=== PATIENT | male | born 1990 | race Caucasian/White ===

== ENCOUNTER 2016-08-05 | Emergency (ER) | payer MEDICAID | END 2016-08-05 15:42 | disposition home or self-care (01) ==

== ENCOUNTER 2017-06-19 16:15 | Emergency (ER) | payer MEDICAID ==
[2017-06-19 16:30] VITALS: BP 126/83
--- NOTE | 2017-06-19 17:27 | ED Physician Documentation ---
PD HPI URI - Stated complaint Stated Complaint: SORE THROAT - Chief complaint Chief Complaint: Heent - History obtained from History obtained from: Patient - History of Present Illness Timing - onset: Last night Timing duration: Days (1) Timing details: Abrupt onset, Still present Associated symptoms: Fever, Sore throat, Swollen nodes. No: Nasal congestion, Dry cough Contributing factors: No: Sick contact, Travel, Immunocompromised, Unimmunized Similar symptoms before: Diagnosis (strep tonsillitis) Recently seen: Not recently seen Review of Systems Constitutional: reports: Fever, Chills Nose: denies: Rhinorrhea / runny nose, Congestion Throat: reports: Sore throat Respiratory: denies: Cough GI: reports: Nausea. denies: Abdominal Pain, Vomiting, Diarrhea : denies: Dysuria, Frequency Skin: denies: Rash PD PAST MEDICAL HISTORY - Past Medical History Past Medical History: No Psych: Depression, Anxiety - Past Surgical History Past Surgical History: No - Present Medications Home Medications: Ambulatory Orders Medication Instructions Recorded Confirmed Amoxicillin 500 mg PO TID #20 capsule 06/19/17 Dexamethasone [Decadron] 4 mg PO DAILY #5 tablet 06/19/17 FLUoxetine [PROzac] 20 mg ORAL DAILY 06/19/17 06/19/17 HYDROcod/ACETAM 5/325 [[place] 5/325] 1 tab PO Q6H PRN #10 tablet 06/19/17 - Allergies Allergies/Adverse Reactions: Allergies Allergy/AdvReac Type Severity Reaction Status Date / Time No Known Drug Allergies Allergy Verified 06/19/17 17:56 - Social History Does the pt smoke?: No Smoking Status: Former smoker Does the pt drink ETOH?: Yes Does the pt have substance abuse?: No - Immunizations Immunizations are current?: Yes - POLST Patient has POLST: No PD ED PE NORMAL - Vitals Vital signs reviewed: Yes - General General: Alert and oriented X 3, Well developed/nourished, Other (appears uncomfortable with swallowing. Slgihtly muffled voice. ) - HEENT HEENT: No: Pharynx benign (enlarged tonsils both sides with exudate. No peritonsillar swelling nor uvular deviation. Tonsils essentially touching in the middle. ) - Neck Neck: Supple, no meningeal sign, Other (anterior nodes felt and tender.) - Cardiac Cardiac: RRR (tachycardic), No murmur - Respiratory Respiratory: Clear bilaterally - Abdomen Abdomen: Normal bowel sounds, Soft, Non tender, No organomegaly - Derm Derm: Normal color, Warm and dry - Extremities Extremities: No deformity, No tenderness to palpate, Normal ROM s pain, No edema , No calf tenderness / cord - Neuro Neuro: Alert and oriented X 3, No motor deficit. No: Normal speech (slightly muffled, but able to swallow saliva and fluids. ) Results - Vitals Vitals: Oxygen O2 Source Room air - Labs Labs: Microbiology 06/19/17 16:33 Group A Strep Throat Culture - Preliminary Throat CULTURE IN PROGRESS. RESULTS TO FOLLOW. Laboratory Tests 06/19/17 16:33 Group A Strep Rapid Negative PD MEDICAL DECISION MAKING - ED course Complexity details: reviewed results, considered differential (looks like exudative tonsillitis, and has 4/4 Centor, so will treat empirically pending cultures. Rapid test negative but has high false negative rate. ), d/w patient Departure - Departure Disposition: 01 Home, Self Care Clinical Impression: Acute tonsillitis Qualifiers: Pharyngitis/tonsillitis etiology: streptococcus Streptococcal tonsillitis recurrence: recurrent Qualified Code(s): J03.01 - Acute recurrent streptococcal tonsillitis Condition: Stable Record reviewed to determine appropriate education?: Yes Instructions: ED Strep Pharyngitis Poss Follow-Up: Mayra Cruz PA-C [Primary Care Provider] - Prescriptions: Amoxicillin 500 mg PO TID #20 capsule Dexamethasone [Decadron] 4 mg PO DAILY #5 tablet HYDROcod/ACETAM 5/325 [[place] 5/325] 1 tab PO Q6H PRN #10 tablet PRN Reason: Pain Comments: This looks like strep tonsillitis. We will treated as such. Tylenol or ibuprofen if needed for mild pains. Drink lots of fluid. You could use some antiseptic rinse such as Listerine a few times a day. Amoxicillin 3 times a day for a week as an antibiotic. Decadron daily for 5 days for inflammation. Add hydrocodone if needed for worse pain. This likely will only need to be for the first couple of days until things are well improved. Recheck if not improved a lot over the next 2-3 days but it may take even 5 or 6 days to be completely better. Return if worsening. Discharge Date/Time: 06/19/17 18:32
[2017-06-19] MEDS ORDERED: AMOXICILLIN 250 MG CAPSULE PO STA (17:39)
[2017-06-19] MEDS ORDERED: DEXAMETHASONE 10 MG/ML VIAL PO STA (17:39)
[2017-06-19] MEDS ORDERED: HYDROcod/ACETAM 5/325 MG TABLET PO STA (17:39)
[2017-06-19 18:01] LABS: RAPID STREP SCREEN REAGENT QC YELLOW (YELLOW)
[2017-06-19] MEDS ORDERED: AMOXICILLIN 250 MG CAPSULE PO ONE (18:15)
[2017-06-19] MEDS ORDERED: HYDROcod/ACETAM 5/325 MG TABLET ONE (18:15)
[2017-06-19] MEDS ORDERED: DEXAMETHASONE 10 MG/ML VIAL ONE (18:15)
== END 2017-06-19 18:32 | disposition home or self-care (01) ==
LOC: ED 16:15
DX: J03.01 Acute recurrent streptococcal tonsillitis (principal); Z87.891 Personal history of nicotine dependence
CPT/HCPCS: 87070; 87430; 99283; A9270

== ENCOUNTER 2018-01-01 13:30 | Outpatient (CLI) | payer MEDICAID ==
[2018-01-01 18:05] LABS: BASOPHILS # (AUTO) 0.1 10^3/uL (0.0-0.1); BASOPHILS % (AUTO) 0.7 %; EOSINOPHILS # (AUTO) 0.6 10^3/uL (0.0-0.7); EOSINOPHILS % (AUTO) 5.3 %; HGB - HEMOGLOBIN 14.1 g/dL (14.0-18.0); LYMPHOCYTES # (AUTO) 2.5 10^3/uL (1.5-3.5); LYMPHOCYTES % (AUTO) 23.4 %; MEAN CORPUSCULAR HEMOGLOBIN 29.6 pg (27.0-31.0); MEAN CORPUSCULAR HGB CONC 34.4 g/dL (32.0-36.0); MEAN CORPUSCULAR VOLUME 86.1 fL (80.0-94.0); MEAN PLATELET VOLUME 7.8 fL (7.4-11.4); MONOCYTES # (AUTO) 0.7 10^3/uL (0.0-1.0); MONOCYTES % (AUTO) 6.9 %; NEUTROPHILS # (AUTO) 6.9 10^3/uL (1.5-6.6); NEUTROPHILS % (AUTO) 63.7 %; PLT - PLATELET COUNT 283 10^3/uL (130-450); RED BLOOD COUNT 4.75 10^6/uL (4.70-6.10); RED CELL DISTRIBUTION WIDTH 12.7 % (12.0-15.0); WHITE BLOOD COUNT 10.9 x10^3/uL (4.8-10.8)
[2018-01-01 19:13] LABS: ALBUMIN 4.1 g/dL (3.2-5.5); ALBUMIN/GLOBULIN RATIO 1.5 (1.0-2.2); ALKALINE PHOSPHATASE 87 IU/L (42-121); ALT ALANINE AMINOTRANSFERASE 98 IU/L (10-60); AST ASPARTATE AMINOTRANSFERASE 57 IU/L (10-42); BILIRUBIN,TOTAL 0.9 mg/dL (0.2-1.0); BUN - BLOOD UREA NITROGEN 15 mg/dL (6-20); CALCIUM 9.4 mg/dL (8.5-10.3); CARBON DIOXIDE - CO2 30 mmol/L (21-32); CHLORIDE 100 mmol/L (101-111); CHOL/HDL RATIO 4.2 (<5.0); CHOLESTEROL 156 mg/dL; CREATININE 0.9 mg/dL (0.6-1.2); GFR - MDRD 102 (>89); GLUCOSE 101 mg/dL (70-100); HDL CHOLESTEROL 37 mg/dL; LDL CHOLESTEROL,CALCULATED 88 mg/dL; LDL/HDL RATIO 2.4 (<3.6); SODIUM 135 mmol/L (135-145); TOTAL PROTEIN 6.9 g/dL (6.7-8.2); VLDL CHOLESTEROL 31 mg/dL
== END 2018-01-01 13:31 | disposition home or self-care (01) ==
LOC: LAB.F 13:30
PROVIDERS: ATTEND Physician Assistant Medical
DX: R53.83 Other fatigue (principal); M25.50 Pain in unspecified joint; Z00.00 Encounter for general adult medical examination without abnormal findings; E29.1 Testicular hypofunction
CPT/HCPCS: 36415; 80053; 80061; 81599; 83721; 84402; 84403; 84443; 85025

== ENCOUNTER 2018-01-10 13:31 | Outpatient (CLI) | payer MEDICAID ==
[2018-01-10 17:51] LABS: BASOPHILS # (AUTO) 0.1 10^3/uL (0.0-0.1); BASOPHILS % (AUTO) 0.9 %; EOSINOPHILS # (AUTO) 0.7 10^3/uL (0.0-0.7); EOSINOPHILS % (AUTO) 6.6 %; HGB - HEMOGLOBIN 14.5 g/dL (14.0-18.0); LYMPHOCYTES # (AUTO) 2.8 10^3/uL (1.5-3.5); LYMPHOCYTES % (AUTO) 25.3 %; MEAN CORPUSCULAR HEMOGLOBIN 29.9 pg (27.0-31.0); MEAN CORPUSCULAR HGB CONC 34.2 g/dL (32.0-36.0); MEAN CORPUSCULAR VOLUME 87.6 fL (80.0-94.0); MEAN PLATELET VOLUME 7.8 fL (7.4-11.4); MONOCYTES # (AUTO) 1.1 10^3/uL (0.0-1.0); MONOCYTES % (AUTO) 9.7 %; NEUTROPHILS # (AUTO) 6.3 10^3/uL (1.5-6.6); NEUTROPHILS % (AUTO) 57.5 %; PLT - PLATELET COUNT 271 10^3/uL (130-450); RED BLOOD COUNT 4.83 10^6/uL (4.70-6.10); RED CELL DISTRIBUTION WIDTH 12.8 % (12.0-15.0)
[2018-01-10 18:08] LABS: ALBUMIN/GLOBULIN RATIO 1.4 (1.0-2.2); BILIRUBIN,TOTAL 1.8 mg/dL (0.2-1.0); CALCIUM 9.2 mg/dL (8.5-10.3); CREATININE 0.9 mg/dL (0.6-1.2); TOTAL PROTEIN 6.9 g/dL (6.7-8.2)
== END 2018-01-10 13:32 | disposition home or self-care (01) ==
LOC: LAB.F 13:31
PROVIDERS: ATTEND Physician Assistant Medical
DX: R89.9 Unspecified abnormal finding in specimens from other organs, systems and tissues (principal); R79.89 Other specified abnormal findings of blood chemistry
CPT/HCPCS: 36415; 80053; 85025

== ENCOUNTER 2018-01-16 13:32 | Outpatient (CLI) | payer MEDICAID ==
[2018-01-20 20:03] LABS: SOURCE WHOLE BLOOD
== END 2018-01-16 13:33 | disposition home or self-care (01) ==
LOC: LAB.F 13:32
PROVIDERS: ATTEND Physician Assistant Medical
DX: J02.9 Acute pharyngitis, unspecified (principal); R89.9 Unspecified abnormal finding in specimens from other organs, systems and tissues; R79.89 Other specified abnormal findings of blood chemistry; R53.83 Other fatigue
CPT/HCPCS: 36415; 87798

== ENCOUNTER 2018-01-30 13:24 | Outpatient (CLI) | payer MEDICAID | END 2018-01-30 13:25 | disposition home or self-care (01) | LOC: SC 13:24 | PROVIDERS: ATTEND Internal Medicine Pulmonary Disease | DX: G47.30 Sleep apnea, unspecified (principal); G47.10 Hypersomnia, unspecified; R06.83 Snoring; G47.8 Other sleep disorders; G47.00 Insomnia, unspecified | CPT/HCPCS: 99203; 99212 ==

== ENCOUNTER 2018-03-19 09:36 | Outpatient (CLI) | payer MEDICAID | END 2018-03-19 09:37 | disposition home or self-care (01) | LOC: SC 09:36 | PROVIDERS: ATTEND Nurse Practitioner Family | DX: R06.83 Snoring (principal); G47.00 Insomnia, unspecified; R53.83 Other fatigue | CPT/HCPCS: 99212; 99214 ==

== ENCOUNTER 2018-05-21 08:00 | Outpatient (CLI) | payer MEDICAID | END 2018-05-21 23:59 | LOC: LAB.R 08:00 | PROVIDERS: ATTEND Physician Assistant Medical | DX: J20.9 Acute bronchitis, unspecified (principal); Z72.53 High risk bisexual behavior | CPT/HCPCS: 87070 ==

== ENCOUNTER 2019-05-31 13:56 | Outpatient (CLI) | payer MEDICAID | END 2019-05-31 13:57 | disposition home or self-care (01) | LOC: LAB 13:56 | PROVIDERS: ATTEND Physician Assistant Medical | DX: F11.11 Opioid abuse, in remission (principal) | CPT/HCPCS: 36415; 81599; 86480 ==

== ENCOUNTER 2019-07-16 19:53 | Emergency (ER) | payer MEDICAID ==
[2019-07-16] MEDS ORDERED: IBUPROFEN 800 MG TABLET PO STA (21:40)
[2019-07-16] MEDS ORDERED: CHERRY SYRUP 10 ML UDC PO ONE (21:40)
[2019-07-16] MEDS ORDERED: AMOX/CLAV 875 MG/125 MG TABLET PO STA (21:40)
[2019-07-16] MEDS ORDERED: DEXAMETHASONE 10 MG/ML VIAL PO STA (21:40)
--- NOTE | 2019-07-16 21:44 | ED Physician Documentation ---
History of Present Illness - Stated complaint Stated Complaint: THROAT PAIN - Chief complaint Chief Complaint: Heent - History obtained from History obtained from: Patient, Family - History of Present Illness Timing: How many weeks ago (1) Pain level max: 7 Pain level now: 6 - Additonal information Additional information: L throat pain. no fever. Worse with swallowing and better with rest. Does have some rhinorrhea and congestion. No cough. No vomiting. Has not taken anything for this at home. Review of Systems Constitutional: denies: Fever, Chills Respiratory: denies: Cough GI: denies: Nausea, Vomiting, Diarrhea Skin: denies: Rash PD PAST MEDICAL HISTORY - Past Medical History Past Medical History: Yes Cardiovascular: None Respiratory: None Neuro: None Endocrine/Autoimmune: None GI: None : None HEENT: None Psych: Depression, Anxiety, Other Musculoskeletal: None Derm: None - Past Surgical History Past Surgical History: No - Present Medications Home Medications: Ambulatory Orders Medication Instructions Recorded Confirmed Amoxicillin 500 mg PO TID #20 capsule 06/19/17 FLUoxetine [PROzac] 20 mg ORAL DAILY 06/19/17 06/19/17 HYDROcod/ACETAM 5/325 [[place] 5/325] 1 tab PO Q6H PRN #10 tablet 06/19/17 dexAMETHasone [Decadron] 4 mg PO DAILY #5 tablet 06/19/17 Amox/Clav 875/125 [Augmentin] 1 each PO Q12H #20 tablet 07/16/19 Ibuprofen [Motrin] 800 mg PO Q8H PRN #30 tablet 07/16/19 - Allergies Allergies/Adverse Reactions: Allergies Allergy/AdvReac Type Severity Reaction Status Date / Time No Known Drug Allergies Allergy Verified 07/16/19 20:03 - Social History Does the pt smoke?: No Smoking Status: Former smoker Does the pt drink ETOH?: Yes Does the pt have substance abuse?: Yes Substance Use and Type: Heroin, Prescription Pills - Immunizations Immunizations are current?: Yes - POLST Patient has POLST: No PD ED PE NORMAL - Vitals Vital signs reviewed: Yes - General General: Alert and oriented X 3, No acute distress - HEENT HEENT: Ears normal, Moist mucous membranes, Other (Left tonsil has a small ulceration at the base. There is also exudate on the tonsil. Uvula is midline. Normal phonation. No trismus.) - Neck Neck: Supple, no meningeal sign, Other (Shotty anterior lymphadenopathy) - Cardiac Cardiac: RRR - Respiratory Respiratory: No respiratory distress, Clear bilaterally - Derm Derm: Warm and dry, No rash - Neuro Neuro: Alert and oriented X 3 Results - Vitals Vitals: Vital Signs - 24 hr 07/16/19 07/16/19 21:12 22:07 Temperature 36.5 C Heart Rate 77 77 Respiratory 16 18 Rate Blood Pressure 122/105 H 138/84 H O2 Saturation 98 98 Oxygen O2 Source Room air - Labs Labs: Microbiology 07/16/19 20:58 Group A Strep Throat Culture - Preliminary Throat CULTURE IN PROGRESS. RESULTS TO FOLLOW. Laboratory Tests 07/16/19 20:58 Group A Strep Rapid Negative PD MEDICAL DECISION MAKING - ED course Complexity details: considered differential, d/w patient ED course: Patient is well-appearing, nontoxic. Afebrile. Will treat as tonsillitis. Patient counseled regarding signs and symptoms for which I believe and urgent re-evaluation would be necessary. Patient with good understanding of and agreement to plan and is comfortable going home at this time This document was made in part using voice recognition software. While efforts are made to proofread this document, sound alike and grammatical errors may occur. No evidence of peritonsillar abscess, retropharyngeal abscess. Departure - Departure Disposition: 01 Home, Self Care Clinical Impression: Acute tonsillitis Qualifiers: Pharyngitis/tonsillitis etiology: unspecified etiology Qualified Code(s): J03.90 - Acute tonsillitis, unspecified Condition: Good Instructions: ED Tonsillitis Follow-Up: Mayra Cruz PA-C [Primary Care Provider] - Within 1 week Prescriptions: Amox/Clav 875/125 [Augmentin] 1 each PO Q12H #20 tablet Ibuprofen [Motrin] 800 mg PO Q8H PRN #30 tablet PRN Reason: PAIN &/OR FEVER Comments: You can try Benadryl at home as well, take the liquid Benadryl and hold it in the area of the ulcer. This will act as a topical anesthetic. Take all antibiotics until gone. Return if you worsen. Discharge Date/Time: 07/16/19 22:10
[2019-07-16 22:08] VITALS: BP 138/84
== END 2019-07-16 22:10 | disposition home or self-care (01) ==
LOC: ED 19:53
DX: J03.90 Acute tonsillitis, unspecified (principal); J35.8 Other chronic diseases of tonsils and adenoids; Z87.891 Personal history of nicotine dependence
CPT/HCPCS: 87070; 87430; 99283; 99284; A9270

== ENCOUNTER 2019-08-02 17:45 | Emergency (ER) | payer MEDICAID ==
[2019-08-02] MEDS ORDERED: MAG HYDROX/AL HYDROX/SIMETH 30 ML UDC PO STA (18:34)
[2019-08-02] MEDS ORDERED: FAMOTIDINE 20 MG TABLET PO STA (18:34)
[2019-08-02] MEDS ORDERED: SUCRALFATE 1 GM/10 ML UDC PO STA (18:34)
--- NOTE | 2019-08-02 18:40 | ED Physician Documentation ---
PD HPI ABD PAIN - Stated complaint Stated Complaint: ABD PAIN X 4 DAYS - Chief complaint Chief Complaint: Abd Pain - History obtained from History obtained from: Patient - History of Present Illness Timing - onset: How many days ago (4-5) Timing - duration: Days (4-5) Timing - details: Gradual onset Pain level max: 7 Pain level now: 4 Quality: Aching, Pain Location: Epigastric Radiation: Chest Improved by: Eating Worsened by: Other (lying down) Associated symptoms: Nausea. No: Fever, Vomiting, Hematemesis, Diarrhea, Constipation, Melena, Hematochezia, Dysuria Similar symptoms before: Has not had sx before Recently seen: Not recently seen Review of Systems Constitutional: denies: Fever, Chills Respiratory: denies: Cough GI: denies: Vomiting, Constipation, Diarrhea, Hematemesis, Bloody / black stool Skin: denies: Rash Musculoskeletal: denies: Neck pain, Back pain Neurologic: denies: Headache PD PAST MEDICAL HISTORY - Past Medical History Past Medical History: No Cardiovascular: None Respiratory: None Neuro: None Endocrine/Autoimmune: None GI: None : None HEENT: None Psych: Depression, Anxiety, Other Musculoskeletal: None Derm: None - Past Surgical History Past Surgical History: No - Present Medications Home Medications: Ambulatory Orders Medication Instructions Recorded Confirmed Amoxicillin 500 mg PO TID #20 capsule 06/19/17 FLUoxetine [PROzac] 20 mg ORAL DAILY 06/19/17 06/19/17 HYDROcod/ACETAM 5/325 [[place] 5/325] 1 tab PO Q6H PRN #10 tablet 06/19/17 dexAMETHasone [Decadron] 4 mg PO DAILY #5 tablet 06/19/17 Amox/Clav 875/125 [Augmentin] 1 each PO Q12H #20 tablet 07/16/19 Ibuprofen [Motrin] 800 mg PO Q8H PRN #30 tablet 07/16/19 Famotidine [Pepcid] 20 mg PO BID #60 tablet 08/02/19 Sucralfate [Carafate] 1 gm PO ACHS #60 tablet 08/02/19 - Allergies Allergies/Adverse Reactions: Allergies Allergy/AdvReac Type Severity Reaction Status Date / Time No Known Drug Allergies Allergy Verified 08/02/19 17:55 - Social History Does the pt smoke?: No Smoking Status: Never smoker Does the pt drink ETOH?: Yes Does the pt have substance abuse?: Yes - Immunizations Immunizations are current?: Yes - POLST Patient has POLST: No PD ED PE NORMAL - Vitals Vital signs reviewed: Yes - General General: Alert and oriented X 3, No acute distress - HEENT HEENT: Moist mucous membranes - Neck Neck: Supple, no meningeal sign - Cardiac Cardiac: RRR, Strong equal pulses - Respiratory Respiratory: No respiratory distress, Clear bilaterally - Abdomen Abdomen: Soft, Non tender, Non distended - Back Back: No CVA TTP, No spinal TTP - Derm Derm: Warm and dry - Neuro Neuro: Alert and oriented X 3 Results - Vitals Vitals: Vital Signs - 24 hr 08/02/19 08/02/19 08/02/19 17:51 17:54 20:26 Temperature 36.4 C L Heart Rate 76 76 72 Respiratory 16 16 18 Rate Blood Pressure 123/88 H 123/88 H 131/84 H O2 Saturation 98 98 97 Oxygen O2 Source Room air - Labs Labs: Laboratory Tests 08/02/19 08/02/19 08/02/19 19:14 19:14 20:30 WBC 14.3 H RBC 4.70 Hgb 14.7 Hct 41.5 L MCV 88.3 MCH 31.3 H MCHC 35.4 RDW 13.0 Plt Count 316 MPV 9.1 Neut # (Auto) 9.8 H Lymph # (Auto) 3.4 [place] # (Auto) 0.8 Eos # (Auto) 0.2 Baso # (Auto) 0.1 Absolute Nucleated RBC 0.00 Nucleated RBC % 0.0 Sodium 138 Potassium 3.8 Chloride 101 Carbon Dioxide 29 Anion Gap 8.0 BUN 14 Creatinine 1.0 Estimated GFR (MDRD) 90 Glucose 94 Calcium 9.3 Total Bilirubin 0.9 AST 17 ALT 20 Alkaline Phosphatase 69 Total Protein 7.1 Albumin 4.5 Globulin 2.6 Albumin/Globulin Ratio 1.7 Lipase 34 Urine Color YELLOW Urine Clarity CLEAR Urine pH 7.0 Ur Specific [place] <=1.005 Urine Protein NEGATIVE Urine Glucose (UA) NEGATIVE Urine Ketones NEGATIVE Urine Occult Blood NEGATIVE Urine Nitrite NEGATIVE Urine Bilirubin NEGATIVE Urine Urobilinogen 0.2 (NORMAL) Ur Leukocyte Esterase NEGATIVE Ur Microscopic Review NOT INDICATED Urine Culture Comments NOT INDICATED - Rads (name of study) RUQ US Radiology: Prelim report reviewed, EMP read contemporaneously, See rad report ( The gallbladder appears within normal limits. No bile duct dilatation is seen. 2. Mild fatty liver. ) PD MEDICAL DECISION MAKING - ED course Complexity details: reviewed results, re-evaluated patient, considered differential, d/w patient ED course: Patient with abdominal pain of unclear etiology. No significant lab abnormalities other than a mild leukocytosis. Not much change with the GI cocktail. Abdomen is soft, nontender nondistended on serial exam. No evidence of cholecystitis. Possible gastritis? He does drink alcohol. Will place on Pepcid and Carafate for home. Also counseled regarding dietary changes for his fatty liver. Patient counseled regarding signs and symptoms for which I believe and urgent re-evaluation would be necessary. Patient with good understanding of and agreement to plan and is comfortable going home at this time This document was made in part using voice recognition software. While efforts are made to proofread this document, sound alike and grammatical errors may occur. Departure - Departure Disposition: 01 Home, Self Care Clinical Impression: Fatty liver Abdominal pain Qualifiers: Abdominal location: unspecified location Qualified Code(s): R10.9 - Unspecified abdominal pain Condition: Good Instructions: ED Abdominal Pain Unkn Cause Follow-Up: Mayra Cruz PA-C [Primary Care Provider] - Within 1 week Prescriptions: Famotidine [Pepcid] 20 mg PO BID #60 tablet Sucralfate [Carafate] 1 gm PO ACHS #60 tablet Comments: The cause of your symptoms is unclear today. Your laboratory testing and ultrasound do not show any acute abnormalities. Return if you worsen. You do have a mild fatty liver, this is likely diet and weight related. Eating more of a plant-based diet will help to reverse this process.
[2019-08-02 19:17] LABS: BASOPHILS # (AUTO) 0.1 10^3/uL (0.0-0.1); BASOPHILS % (AUTO) 0.5 %; EOSINOPHILS # (AUTO) 0.2 10^3/uL (0.0-0.7); EOSINOPHILS % (AUTO) 1.1 %; HGB - HEMOGLOBIN 14.7 g/dL (14.0-18.0); LYMPHOCYTES # (AUTO) 3.4 10^3/uL (1.5-3.5); LYMPHOCYTES % (AUTO) 23.7 %; MEAN CORPUSCULAR HEMOGLOBIN 31.3 pg (27.0-31.0); MEAN CORPUSCULAR HGB CONC 35.4 g/dL (32.0-36.0); MEAN CORPUSCULAR VOLUME 88.3 fL (80.0-94.0); MEAN PLATELET VOLUME 9.1 fL (7.4-11.4); MONOCYTES # (AUTO) 0.8 10^3/uL (0.0-1.0); MONOCYTES % (AUTO) 5.6 %; NEUTROPHILS # (AUTO) 9.8 10^3/uL (1.5-6.6); NEUTROPHILS % (AUTO) 68.6 %; PLT - PLATELET COUNT 316 10^3/uL (130-450); WHITE BLOOD COUNT 14.3 x10^3/uL (4.8-10.8)
[2019-08-02 19:33] LABS: ALBUMIN 4.5 g/dL (3.2-5.5); ALBUMIN/GLOBULIN RATIO 1.7 (1.0-2.2); BILIRUBIN,TOTAL 0.9 mg/dL (0.2-1.0); CALCIUM 9.3 mg/dL (8.5-10.3); TOTAL PROTEIN 7.1 g/dL (6.7-8.2)
[2019-08-02 20:27] VITALS: BP 131/84
[2019-08-02 21:02] LABS: BILIRUBIN,URINE NEGATIVE (NEGATIVE); GLUCOSE, URINE (UA) NEGATIVE (NEGATIVE); KETONES,URINE (UA) NEGATIVE (NEGATIVE); LEUKOCYTE ESTERASE, URINE NEGATIVE (NEGATIVE); NITRITE,URINE NEGATIVE (NEGATIVE); OCCULT BLOOD,URINE NEGATIVE (NEGATIVE); PROTEIN,URINE NEGATIVE (NEGATIVE); UROBILINOGEN,URINE 0.2 (NORMAL) E.U./dL (NORMAL)
[2019-08-02 21:06] LABS: CLARITY,URINE CLEAR (CLEAR)
--- NOTE | 2019-08-02 22:01 | Ultrasound Report ---
Reason: RUQ abd pain Procedure Date: 08/02/2019 Accession Number: [id number] / [id number] Procedure: US - Abdomen Limited CPT Code: Final Report FULL RESULT: EXAM: ABDOMEN ULTRASOUND LIMITED, RUQ EXAM DATE: 08/02/2019 09:32 PM. CLINICAL HISTORY: Right upper quadrant abdomen pain. COMPARISON: None. TECHNIQUE: Real-time scanning was performed with static images obtained. FINDINGS: The liver measures 18.1 cm in length. The echotexture is mildly hyperechoic consistent with mild fatty liver. Hepatopetal flow is seen within the main portal vein. Gallbladder appears partially contracted, mildly limited exam. No gallbladder wall thickening is seen. Negative sonographic Rios sign. No gallstones. The patient ate 4 hours ago. The common duct measures 5 mm. No bile duct dilatation is seen. The right kidney measures 11.1 cm in length and there is no hydronephrosis. Visualized portions of the pancreas appear unremarkable. IMPRESSION: 1. The gallbladder appears within normal limits. No bile duct dilatation is seen. 2. Mild fatty liver. 3. See above. RADIA
== END 2019-08-02 22:38 | disposition home or self-care (01) ==
LOC: ED 17:45
DX: R10.13 Epigastric pain (principal); R11.0 Nausea; K76.0 Fatty (change of) liver, not elsewhere classified
CPT/HCPCS: 36415; 76705; 80053; 81003; 83690; 85025; 99284; A9270; 81001; 87086

== ENCOUNTER 2020-10-07 21:46 | Emergency (ER) | payer MEDICAID | END 2020-10-07 22:16 | disposition left against medical advice (07) | LOC: ED 21:46 | DX: Z53.21 Procedure and treatment not carried out due to patient leaving prior to being seen by health care provider (principal) ==

== ENCOUNTER 2020-10-08 02:17 | Outpatient (CLI) | payer MEDICAID | END 2020-10-08 02:18 | disposition critical access hospital (66) | LOC: EMS 02:17 | PROVIDERS: ATTEND Emergency Medicine | DX: R41.82 Altered mental status, unspecified (principal); F41.9 Anxiety disorder, unspecified; M79.604 Pain in right leg; M25.551 Pain in right hip; R07.9 Chest pain, unspecified | CPT/HCPCS: A0425; A0429; A0999 ==

== ENCOUNTER 2020-10-08 02:26 | Emergency (ER) | payer MEDICAID ==
[2020-10-08 02:48] LABS: BASOPHILS % (AUTO) 0.4 %; EOSINOPHILS % (AUTO) 0.4 %; HCT - HEMATOCRIT 39.7 % (42.0-52.0); LYMPHOCYTES # (AUTO) 2.2 10^3/uL (1.5-3.5); LYMPHOCYTES % (AUTO) 23.5 %; MEAN CORPUSCULAR HEMOGLOBIN 29.7 pg (27.0-31.0); MEAN CORPUSCULAR HGB CONC 35.3 g/dL (32.0-36.0); MEAN CORPUSCULAR VOLUME 84.3 fL (80.0-94.0); MONOCYTES # (AUTO) 0.8 10^3/uL (0.0-1.0); MONOCYTES % (AUTO) 8.1 %; NEUTROPHILS # (AUTO) 6.3 10^3/uL (1.5-6.6); NEUTROPHILS % (AUTO) 67.2 %; PLT - PLATELET COUNT 286 10^3/uL (130-450); RED BLOOD COUNT 4.71 10^6/uL (4.70-6.10); RED CELL DISTRIBUTION WIDTH 12.6 % (12.0-15.0); WHITE BLOOD COUNT 9.4 x10^3/uL (4.8-10.8)
[2020-10-08 02:57] LABS: MUDS CUTOFF CONCENTRATIONS CUTOFF CONC BELOW:
[2020-10-08 02:58] LABS: BILIRUBIN,URINE NEGATIVE (NEGATIVE); GLUCOSE, URINE (UA) NEGATIVE (NEGATIVE); KETONES,URINE (UA) TRACE mg/dL (NEGATIVE); LEUKOCYTE ESTERASE, URINE NEGATIVE (NEGATIVE); NITRITE,URINE NEGATIVE (NEGATIVE); OCCULT BLOOD,URINE NEGATIVE (NEGATIVE); PROTEIN,URINE NEGATIVE (NEGATIVE); UROBILINOGEN,URINE 1 (NORMAL) E.U./dL (NORMAL)
[2020-10-08 03:07] LABS: ACETAMINOPHEN < 10 ug/mL (10-30); ALBUMIN 4.5 g/dL (3.2-5.5); ALBUMIN/GLOBULIN RATIO 1.9 (1.0-2.2); ALKALINE PHOSPHATASE 58 IU/L (42-121); ALT ALANINE AMINOTRANSFERASE 80 IU/L (10-60); AST ASPARTATE AMINOTRANSFERASE 64 IU/L (10-42); BILIRUBIN,TOTAL 1.3 mg/dL (0.2-1.0); BUN - BLOOD UREA NITROGEN 11 mg/dL (6-20); CALCIUM 9.5 mg/dL (8.5-10.3); CARBON DIOXIDE - CO2 25 mmol/L (21-32); CHLORIDE 97 mmol/L (101-111); CREATININE 0.9 mg/dL (0.6-1.2); ETOH - ETHANOL < 5.0 mg/dL; GFR - MDRD 100 (>89); GLUCOSE 122 mg/dL (70-100); LIPASE 46 U/L (22-51); POTASSIUM 3.7 mmol/L (3.5-5.0); SALICYLATE < 6.0 mg/dL; SODIUM 136 mmol/L (135-145); TOTAL PROTEIN 6.9 g/dL (6.7-8.2)
[2020-10-08 03:08] LABS: CLARITY,URINE CLEAR (CLEAR)
[2020-10-08 03:09] LABS: AMPHETAMINE SCREEN,URINE NEGATIVE (NEGATIVE); BARBITURATE SCREEN,UR NEGATIVE (NEGATIVE); BENZODIAZEPINES SCREEN, URINE POSITIVE (NEGATIVE); COCAINE SCREEN URINE NEGATIVE (NEGATIVE); METHADONE SCREEN, URINE NEGATIVE (NEGATIVE); METHAMPHETAMINES SCREEN, URINE NEGATIVE (NEGATIVE); OPIATE SCREEN, URINE NEGATIVE (NEGATIVE); OXYCODONE SCREEN, URINE NEGATIVE (NEGATIVE); PROPOXYPHENE SCREEN, URINE NEGATIVE (NEGATIVE); THC CANNABINOID SCREEN, URINE POSITIVE (NEGATIVE); TRICYCLIC ANTIDEPRESSANT,URINE NEGATIVE (NEGATIVE)
--- NOTE | 2020-10-08 03:46 | ED Physician Documentation ---
History of Present Illness - Stated complaint Stated Complaint: AMS,CONFUSION - Chief complaint Chief Complaint: General - History obtained from History obtained from: Patient, EMS - History of Present Illness Timing: Today - Additonal information Additional information: 30-year-old male recently has had a DUI and has become homeless. He has not been taking his Zoloft for the past several days or a week. He is now feeling out of sorts and he was at the home of his parents at [facility] and the ambulance was summoned.The patient denies use of illicit drugs or alcohol and states that he just does not feel himself and feels cold. He did spend the day outside yesterday. Review of Systems Constitutional: denies: Fever Eyes: denies: Decreased vision Ears: denies: Ear pain Nose: denies: Rhinorrhea / runny nose, Congestion Throat: denies: Sore throat Cardiac: denies: Chest pain / pressure, Palpitations Respiratory: denies: Dyspnea, Cough GI: denies: Abdominal Pain, Nausea, Vomiting : denies: Dysuria, Frequency PD PAST MEDICAL HISTORY - Past Medical History Past Medical History: Yes Cardiovascular: None Respiratory: None Neuro: None Endocrine/Autoimmune: None GI: None : None HEENT: None Psych: Depression, Anxiety, Other Musculoskeletal: None Derm: None - Past Surgical History Past Surgical History: No - Present Medications Home Medications: Ambulatory Orders Medication Instructions Recorded Confirmed Amoxicillin 500 mg PO TID #20 capsule 06/19/17 FLUoxetine [PROzac] 20 mg ORAL DAILY 06/19/17 06/19/17 HYDROcod/ACETAM 5/325 [[place] 5/325] 1 tab PO Q6H PRN #10 tablet 06/19/17 Amox/Clav 875/125 [Augmentin] 1 each PO Q12H #20 tablet 07/16/19 Famotidine [Pepcid] 20 mg PO BID #60 tablet 08/02/19 Buspirone HCl 15 mg PO DAILY 10/08/20 10/08/20 Mirtazapine [Remeron] 15 mg PO DAILY 10/08/20 10/08/20 Sertraline HCl [Zoloft] 100 mg PO DAILY 10/08/20 10/08/20 Sertraline [Zoloft] 150 mg PO DAILY #60 tablet 10/08/20 - Allergies Allergies/Adverse Reactions: Allergies Allergy/AdvReac Type Severity Reaction Status Date / Time No Known Drug Allergies Allergy Verified 10/08/20 02:32 - Social History Does the pt smoke?: No Smoking Status: Never smoker Does the pt drink ETOH?: Yes Does the pt have substance abuse?: Yes - Immunizations Immunizations are current?: Yes - POLST Patient has POLST: No PD ED PE NORMAL - Vitals Vital signs reviewed: Yes (Hypertensive) - General General: Alert and oriented X 3, No acute distress, Well developed/nourished - HEENT HEENT: Atraumatic, PERRL, EOMI - Neck Neck: Supple, no meningeal sign, No bony TTP - Cardiac Cardiac: RRR, No murmur - Respiratory Respiratory: No respiratory distress, Clear bilaterally - Abdomen Abdomen: Normal bowel sounds, Soft, Non tender, Non distended, No organomegaly - Back Back: No CVA TTP, No spinal TTP - Derm Derm: Normal color, Warm and dry, No rash - Extremities Extremities: No deformity, No edema - Neuro Neuro: Alert and oriented X 3, thrill performer 2-12 intact, No motor deficit, No sensory deficit, Normal speech Eye Opening: Spontaneous Motor: Obeys Commands Verbal: Oriented GCS Score: 15 - Psych Psych: Normal mood, Normal affect Results - Vitals Vitals: Vital Signs - 24 hr 10/08/20 10/08/20 10/08/20 02:34 02:37 04:37 Temperature 36.8 C 36.8 C 36.9 C Heart Rate 77 77 75 Respiratory 15 15 17 Rate Blood Pressure 146/97 H 146/97 H 139/84 H O2 Saturation 98 98 94 10/08/20 06:00 Temperature 37.1 C Heart Rate 72 Respiratory 16 Rate Blood Pressure 129/72 O2 Saturation 95 Oxygen O2 Source Room air - Labs Labs: Laboratory Tests 10/08/20 10/08/20 10/08/20 02:38 02:45 02:45 WBC 9.4 RBC 4.71 Hgb 14.0 Hct 39.7 L MCV 84.3 MCH 29.7 MCHC 35.3 RDW 12.6 Plt Count 286 MPV 9.0 Neut # (Auto) 6.3 Lymph # (Auto) 2.2 [place] # (Auto) 0.8 Eos # (Auto) 0.0 Baso # (Auto) 0.0 Absolute Nucleated RBC 0.00 Nucleated RBC % 0.0 Sodium 136 Potassium 3.7 Chloride 97 L Carbon Dioxide 25 Anion Gap 14.0 H BUN 11 Creatinine 0.9 Estimated GFR (MDRD) 100 Glucose 122 H Calcium 9.5 Total Bilirubin 1.3 H AST 64 H ALT 80 H Alkaline Phosphatase 58 Total Protein 6.9 Albumin 4.5 Globulin 2.4 Albumin/Globulin Ratio 1.9 Lipase 46 TSH Free T4 1.13 Urine Color Urine Clarity Urine pH Ur Specific [place] Urine Protein Urine Glucose (UA) Urine Ketones Urine Occult Blood Urine Nitrite Urine Bilirubin Urine Urobilinogen Ur Leukocyte Esterase Ur Microscopic Review Urine Culture Comments Salicylates < 6.0 Urine Opiates Screen Ur Oxycodone Screen Urine Methadone Screen Ur Propoxyphene Screen Acetaminophen < 10 L Ur Barbiturates Screen Ur Tricyclics Screen Ur Phencyclidine Scrn Ur Amphetamine Screen U Methamphetamines Scrn U Benzodiazepines Scrn Urine Cocaine Screen U Cannabinoids Screen Ethyl Alcohol < 5.0 10/08/20 10/08/20 02:45 02:52 WBC RBC Hgb Hct MCV MCH MCHC RDW Plt Count MPV Neut # (Auto) Lymph # (Auto) [place] # (Auto) Eos # (Auto) Baso # (Auto) Absolute Nucleated RBC Nucleated RBC % Sodium Potassium Chloride Carbon Dioxide Anion Gap BUN Creatinine Estimated GFR (MDRD) Glucose Calcium Total Bilirubin AST ALT Alkaline Phosphatase Total Protein Albumin Globulin Albumin/Globulin Ratio Lipase TSH 0.28 L Free T4 Urine Color YELLOW Urine Clarity CLEAR Urine pH 7.0 Ur Specific [place] 1.025 Urine Protein NEGATIVE Urine Glucose (UA) NEGATIVE Urine Ketones TRACE Urine Occult Blood NEGATIVE Urine Nitrite NEGATIVE Urine Bilirubin NEGATIVE Urine Urobilinogen 1 (NORMAL) Ur Leukocyte Esterase NEGATIVE Ur Microscopic Review NOT INDICATED Urine Culture Comments NOT INDICATED Salicylates Urine Opiates Screen NEGATIVE Ur Oxycodone Screen NEGATIVE Urine Methadone Screen NEGATIVE Ur Propoxyphene Screen NEGATIVE Acetaminophen Ur Barbiturates Screen NEGATIVE Ur Tricyclics Screen NEGATIVE Ur Phencyclidine Scrn NEGATIVE Ur Amphetamine Screen NEGATIVE U Methamphetamines Scrn NEGATIVE U Benzodiazepines Scrn POSITIVE H Urine Cocaine Screen NEGATIVE U Cannabinoids Screen POSITIVE H Ethyl Alcohol PD MEDICAL DECISION MAKING - ED course Complexity details: reviewed old records, reviewed results, re-evaluated patient, considered differential, d/w patient ED course: Previously well 50-year-old male who is been on Zoloft for more than 3 years has stopped taking his Zoloft and it has been almost a week. I believe he is going through some symptoms of withdrawal associated with this medication. He is administered his Zoloft dose as a morning dose.His work-up is otherwise unremarkable. He is currently homeless and transition social worker are offered to the patient. 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 Re-start your zoloft at the prior dose. If you are going to stop this medication you will need to taper off over about 3-4 weeks. Follow up with your primary care doctor for help with this if you are going to try to stop this medication.
[2020-10-08] MEDS ORDERED: SERTRALINE 50 MG TABLET PO STA (06:17)
[2020-10-08 09:23] VITALS: BP 166/90
--- NOTE | 2020-10-08 10:39 | ED Physician Documentation ---
ED Addendum - Addendum Addendum: 10/08/20 10:[address] Charles and seen by social work. Briefly: newly homeless 30-year-old gentleman with symptoms probably related to running out of Zoloft few days ago. He is comfortable with discharge and I clarified the dosing with him. 150 mg once a day and he was given a prescription signed by Dr. Charles. He denied any other needs when asked.
== END 2020-10-08 10:54 | disposition home or self-care (01) ==
LOC: EDUNIT# → ED 02:26
DX: Z59.0 Homelessness (principal); T43.226A Underdosing of selective serotonin reuptake inhibitors, initial encounter; Z91.138 Patient's unintentional underdosing of medication regimen for other reason
CPT/HCPCS: 36415; 80053; 80306; 80307; 80320; 80329; 81003; 83690; 84439; 84443; 85025; 99283; A9270; 81001; 87086